=== PATIENT | female | born 1950 | race Caucasian/White ===

== ENCOUNTER 2017-12-28 10:00 | Emergency (ER) | payer OTHER ==
[2017-12-28] MEDS ORDERED: HYDROCODONE/APAP 5/325 MG TAB ONE (10:56)
[2017-12-28] MEDS ORDERED: AMOX/K CLAV 875 MG TAB ONE (11:14)
--- NOTE | 2017-12-28 11:34 | RAD REPORT ---
EXAM DESCRIPTION: US - BREAST/AXILLA, LIMITED - 12/28/2017 11:17 am CLINICAL HISTORY: Left breast pain COMPARISON: None FINDINGS: A 15 millimeter heterogeneous fluid collection is present within the inner retroareolar r egion of the left breast at the site of recent surgery. IMPRESSION: 15 millimeter heterogeneous fluid collection within the inner retroareolar region of the left breast at site of recent surgery could represent an abscess or hematoma
--- NOTE | 2017-12-28 11:56 | EDPHYS ---
Physician Documentation [facility] Name: Diana Cook Age: 66 yrs Sex: Female : 1950 Arrival Date: 12/28/2017 Time: 10:03 Bed 7 Private MD: ED Physician Frank Henry HPI: 12/28 10:42 This 66 yrs old Female presents to ER via Ambulatory with complaints of snw Drainage From Breast. 10:42 pt had lumpectomy of benign tumor three weeks ago in [place]. Area distal to left snw nipple with dc. Onset: The symptoms/episode began/occurred gradually, 2 day(s) ago. Severity of symptoms: At their worst the symptoms were moderate. The patient has not experienced similar symptoms in the past. as noted. Historical: - Allergies: 10:41 No Known Allergies; tw2 - Home Meds: 10:41 pravastatin 40 mg oral tab 1 tab once daily [Active]; duloxetine 60 mg oral cpDR 1 cap tw2 once daily [Active]; Vitamin D Oral [Active]; Spiriva with HandiHaler 18 mcg inhalation CpDv 1 cap once daily [Active]; pantoprazole 40 mg oral TbEC 1 tab 2 times per day [Active]; ondansetron HCl 4 mg Oral tab 2 tabs every 8 hours [Active]; - PMHx: 10:41 Hyperlipidemia; tw2 - PSHx: 10:41 right knee; hammertoe sx; left breast, cyst removed; left breast, benign tumor removed; tw2 - Immunization history:: Adult Immunizations. - Social history:: Smoking status: . - Ebola Screening: : Patient denies travel to an Ebola-affected area in the 21 days before illness onset. ROS: 10:40 Constitutional: Negative for fever, chills, and weight loss, Eyes: Negative for injury, snw pain, redness, and discharge, ENT: Negative for injury, pain, and discharge, Neck: Negative for injury, pain, and swelling, Cardiovascular: Negative for chest pain, palpitations, and edema, Respiratory: Negative for shortness of breath, cough, wheezing, and pleuritic chest pain, Abdomen/GI: Negative for abdominal pain, nausea, vomiting, diarrhea, and constipation, Back: Negative for injury and pain, : Negative for injury, bleeding, discharge, and swelling, MS/Extremity: Negative for injury and deformity, Skin: Negative for injury, rash, and discoloration, distal to nipple with drainage s/p lumpectomy Neuro: Negative for headache, weakness, numbness, tingling, and seizure, Psych: Negative for depression, anxiety, suicide ideation, homicidal ideation, and hallucinations. Exam: 10:37 Constitutional: This is a well developed, well nourished patient who is awake, alert, snw and in no acute distress. Head/Face: Normocephalic, atraumatic. Eyes: Pupils equal round and reactive to light, extra-ocular motions intact. Lids and lashes normal. Conjunctiva and sclera are non-icteric and not injected. Cornea within normal limits. Periorbital areas with no swelling, redness, or edema. ENT: Nares patent. No nasal discharge, no septal abnormalities noted. Tympanic membranes are normal and external auditory canals are clear. Oropharynx with no redness, swelling, or masses, exudates, or evidence of obstruction, uvula midline. Mucous membranes moist. Neck: Trachea midline, no thyromegaly or masses palpated, and no cervical lymphadenopathy. Supple, full range of motion without nuchal rigidity, or vertebral point tenderness. No Meningismus. Cardiovascular: Regular rate and rhythm with a normal S1 and S2. No gallops, murmurs, or rubs. Normal PMI, no JVD. No pulse deficits. Respiratory: Lungs have equal breath sounds bilaterally, clear to auscultation and percussion. No rales, rhonchi or wheezes noted. No increased work of breathing, no retractions or nasal flaring. Abdomen/GI: Soft, non-tender, with normal bowel sounds. No distension or tympany. No guarding or rebound. No evidence of tenderness throughout. Back: No spinal tenderness. No costovertebral tenderness. Full range of motion. Skin: Warm, dry with normal turgor. Normal color with no rashes, no lesions, and no evidence of cellulitis. MS/ Extremity: Pulses equal, no cyanosis. Neurovascular intact. Full, normal range of motion. Neuro: Awake and alert, GCS 15, oriented to person, place, time, and situation. Cranial nerves II-XII grossly intact. Motor strength 5/5 in all extremities. Sensory grossly intact. Cerebellar exam normal. Normal gait. 10:37 Chest/axilla: Inspection: normal, left breast with healing surgical incision to left breast at nipple, lumpectomy of benign tumor 3 wks ago. Noted some larson/white dc today, no fever. Vital Signs: 10:28 BP 166 / 87; Pulse 76; Resp 16; Pulse Ox 97% on R/A; iw 10:53 Temp 98.4(O); tw2 11:24 BP 172 / 63; Pulse 65; Resp 17; Pulse Ox 95% on R/A; tw2 11:59 BP 161 / 81; Pulse 73; Resp 17; Pulse Ox 95% on R/A; tw2 MDM: 10:26 Patient medically screened. snw 11:57 Data reviewed: vital signs, nurses notes. Data interpreted: Pulse oximetry: on room air snw is 95 %. Interpretation: acceptable. Counseling: I had a detailed discussion with the patient and/or guardian regarding: the historical points, exam findings, and any diagnostic results supporting the discharge/admit diagnosis, the presence of at least one elevated blood pressure reading (>120/80) during this emergency department visit, radiology results, the need for outpatient follow up, to return to the emergency department if symptoms worsen or persist or if there are any questions or concerns that arise at home. Response to treatment: There is no appreciated change of the patient's symptoms at this time. Special discussion: I discussed in detail with the patient the higher chance of wound infection based on his presenting history. Based on the history and exam findings, there is no indication for further emergent testing or inpatient evaluation. I discussed with the patient/guardian the need to see the plastic surgeon for further evaluation of the symptoms. I discussed with the patient/guardian the need to see the primary care provider for further evaluation of the symptoms. 12/28 10:37 Order name: BREAST/AXILLA, LIMITED; Complete Time: 11:50 EDMS Administered Medications: 10:53 Drug: [place] 5 mg-325 mg 1 tabs Route: PO; tw2 12:00 Follow up: Response: No adverse reaction tw2 10:56 Not Given (not available): Dicloxacillin 500 mg PO once snw 11:25 Drug: Augmentin 875 mg Route: PO; tw2 12:00 Follow up: Response: No adverse reaction tw2 Disposition: 12:59 Co-signature as Attending Physician, Frank Henry MD I agree with the assessment and kdr plan of care. Disposition: 12/28/17 11:55 Discharged to Home. Impression: Surgical operation and other surgical procedures as the cause of abnormal reaction of the patient, or of later complication, without mention of misadventure at the time of the procedure, Granulation of recent surgical wound. - Condition is Stable. - Discharge Instructions: Delayed Wound Closure, Wound Check, Wound Infection, Heat Therapy. - Prescriptions for Dicloxacillin 500 mg Oral Capsule - take 1 capsule by ORAL route every 6 hours for 10 days; 40 capsule. - Medication Reconciliation Form, Thank You Letter, Antibiotic Education, Prescription Opioid Use form. - Follow up: Celso Childs MD; When: 2 - 3 days; Reason: Recheck today's complaints, Continuance of care, Re-evaluation by your physician. Follow up: Emergency Department; When: As needed; Reason: Fever > 102 F, Worsening of condition. Signatures: Dispatcher [employer] EDVT Frank Henry MD MD [facility] Suni Adams, RECOOPERER-C RECOOPERER-Csnw Anna Gonzalez RN RN tw2 Corrections: (The following items were deleted from the chart) 12:03 11:55 12/28/2017 11:55 Discharged to Home. Impression: Surgical operation and other tw2 surgical procedures as the cause of abnormal reaction of the patient, or of later complication, without mention of misadventure at the time of the procedure; Granulation of recent surgical wound. Condition is Stable. Forms are Medication Reconciliation Form, Thank You Letter, Antibiotic Education, Prescription Opioid Use. Follow up: Celso Childs; When: 2 - 3 days; Reason: Recheck today's complaints, Continuance of care, Re-evaluation by your physician. Follow up: Emergency Department; When: As needed; Reason: Fever > 102 F, Worsening of condition. snw
--- NOTE | 2017-12-28 11:56 | ER ---
Nurse's Notes [facility] Name: Diana Cook Age: 66 yrs Sex: Female : 1950 Arrival Date: 12/28/2017 Time: 10:03 Bed 7 Private MD: Diagnosis: Surgical operation and other surgical procedures as the cause of abnormal reaction of the patient, or of later complication, without mention of misadventure at the time of the procedure;Granulation of recent surgical wound Presentation: 12/28 10:21 Risk Assessment: Do you want to hurt yourself or someone else? Patient reports no tw2 desire to harm self or others. Initial Sepsis Screen: Does the patient meet any 2 criteria? No. Patient's initial sepsis screen is negative. Does the patient have a suspected source of infection? No. Patient's initial sepsis screen is negative. 10:25 Presenting complaint: Patient states: had a benign tumor removed from left breast 3 iw weeks ago in [place], area around her left nipple started to blister up and started draining on Sunday, pt states there is pink/yellowish drainage from wound and she thinks there is a smell, was seen at urgent care and was sent to ER for eval. Transition of care: patient was not received from another setting of care. Onset of symptoms was December 19, 2017. Care prior to arrival: None. 10:25 Method Of Arrival: Ambulatory iw 10:25 Acuity: PANCHO 4 iw Historical: - Allergies: 10:41 No Known Allergies; tw2 - Home Meds: 10:41 pravastatin 40 mg oral tab 1 tab once daily [Active]; duloxetine 60 mg oral cpDR 1 cap tw2 once daily [Active]; Vitamin D Oral [Active]; Spiriva with HandiHaler 18 mcg inhalation CpDv 1 cap once daily [Active]; pantoprazole 40 mg oral TbEC 1 tab 2 times per day [Active]; ondansetron HCl 4 mg Oral tab 2 tabs every 8 hours [Active]; - PMHx: 10:41 Hyperlipidemia; tw2 - PSHx: 10:41 right knee; hammertoe sx; left breast, cyst removed; left breast, benign tumor removed; tw2 - Immunization history:: Adult Immunizations. - Social history:: Smoking status: . - Ebola Screening: : Patient denies travel to an Ebola-affected area in the 21 days before illness onset. Screenin:20 Abuse screen: Denies threats or abuse. Nutritional screening: No deficits noted. tw2 Tuberculosis screening: No symptoms or risk factors identified. Fall Risk None identified. Assessment: 10:35 General: Appears in no apparent distress. well groomed, Behavior is calm, cooperative, tw2 appropriate for age. Pain: Denies pain. Neuro: Level of Consciousness is awake, alert, obeys commands, Oriented to person, place, time, situation. Cardiovascular: Denies chest pain, shortness of breath, Heart tones S1 S2 Patient's skin is warm and dry. Respiratory: Airway is patent Respiratory effort is even, unlabored, Respiratory pattern is regular, symmetrical, Breath sounds are clear bilaterally. GI: No signs and/or symptoms were reported involving the gastrointestinal system. : No signs and/or symptoms were reported regarding the genitourinary system. EENT: No signs and/or symptoms were reported regarding the EENT system. Derm: Wound noted left breast. Musculoskeletal: Range of motion: intact in all extremities. 11:25 Reassessment: Patient appears in no apparent distress at this time. No changes from tw2 previously documented assessment. Patient and/or family updated on plan of care and expected duration. Pain level reassessed. Patient is alert, oriented x 3, equal unlabored respirations, skin warm/dry/pink. 12:02 Reassessment: Patient appears in no apparent distress at this time. No changes from tw2 previously documented assessment. Patient and/or family updated on plan of care and expected duration. Pain level reassessed. Patient is alert, oriented x 3, equal unlabored respirations, skin warm/dry/pink. Vital Signs: 10:28 BP 166 / 87; Pulse 76; Resp 16; Pulse Ox 97% on R/A; iw 10:53 Temp 98.4(O); tw2 11:24 BP 172 / 63; Pulse 65; Resp 17; Pulse Ox 95% on R/A; tw2 11:59 BP 161 / 81; Pulse 73; Resp 17; Pulse Ox 95% on R/A; tw2 ED Course: 10:03 Patient arrived in ED. tw3 10:19 Anna Gonzalez RN is Primary Nurse. tw2 10:21 Arm band placed on. tw2 10:21 Placed in gown. Bed in low position. Adult w/ patient. Pulse ox on. NIBP on. tw2 10:24 [facility]C [facility] snw 10:24 Frank Henry MD is Attending Physician. snw 10:28 Triage completed. iw 10:59 Patient taken to ultrasound. via wheelchair. lc3 11:16 Ultrasound completed. Patient tolerated well. Patient moved back from ultrasound. lc3 11:17 BREAST/AXILLA, LIMITED In Process Unspecified. EDMS 11:52 Celso Childs MD is Referral Physician. snw 12:02 No provider procedures requiring assistance completed. Patient did not have IV access tw2 during this emergency room visit. Administered Medications: 10:53 Drug: [place] 5 mg-325 mg 1 tabs Route: PO; tw2 12:00 Follow up: Response: No adverse reaction tw2 10:56 Not Given (not available): Dicloxacillin 500 mg PO once snw 11:25 Drug: Augmentin 875 mg Route: PO; tw2 12:00 Follow up: Response: No adverse reaction tw2 Outcome: 11:55 Discharge ordered by . snw 12:02 Discharged to home ambulatory, with significant other. tw2 12:02 Condition: stable 12:02 Discharge instructions given to patient, significant other, Instructed on discharge instructions, follow up and referral plans. medication usage, Demonstrated understanding of instructions, follow-up care, medications, Prescriptions given X 1. 12:03 Patient left the ED. tw2 Signatures: Dispatcher [employer] EDIA Suni Adams FNP-C DECORATING INSPECTOR-Csnw Megha Gunn, RN RN iw Boby Multani lc3 Anna Gonzalez, JASMINE RN tw2 Juana Monae tw3
== END 2017-12-28 12:03 | disposition home or self-care (01) ==
LOC: ER 10:00
DX: T81.89XA Other complications of procedures, not elsewhere classified, initial encounter (principal); S21.002A Unspecified open wound of left breast, initial encounter; Y83.8 Other surgical procedures as the cause of abnormal reaction of the patient, or of later complication, without mention of misadventure at the time of the procedure; Y92.239 Unspecified place in hospital as the place of occurrence of the external cause; E78.5 Hyperlipidemia, unspecified; Z98.890 Other specified postprocedural states
CPT/HCPCS: 76642; 99284